=== PATIENT | female | born 1990 | race African-American/Black ===

== ENCOUNTER 2024-12-07 22:35 | Emergency (ER) | payer OTHER ==
[2024-12-07 22:39] VITALS: BP 130/72; PULSE 80; RESP 16; TEMP 97.3; BMI 30.4
[2024-12-07 23:16] LABS: HEMATOCRIT 40.1 % (32.4-45.2); HEMOGLOBIN 13.9 G/dL (10.7-15.3); MCH 33.4 pg (25.7-33.7); MCHC 34.7 g/dl (32.0-36.0); MEAN CELL VOLUME 96.3 fl (80-96); MEAN PLT VOLUME 7.4 fl (7.5-11.1); PLATELET COUNT 308.1 10^3/uL (134-434); RBC 4.16 10^6/uL (3.60-5.2); RDW 12.4 % (11.6-15.6); WHITE BLOOD COUNT 8.9 10^3/uL (4.0-10.8)
[2024-12-07 23:32] LABS: ALBUMIN 4.7 g/dl (3.4-5.0); BILIRUBIN,TOTAL 0.3 mg/dl (0.2-1); CREATININE 0.9 mg/dl (0.6-1.3); POTASSIUM 3.8 mmol/L (3.5-5.1); TOT PROT 7.5 g/dl (6.4-8.2)
[2024-12-07 23:38] LABS: PLATELET ESTIMATE ADEQUATE
== END 2024-12-08 00:19 | disposition home or self-care (01) ==
LOC: FER 22:35
DX: R07.89 Other chest pain (principal); R11.2 Nausea with vomiting, unspecified
CPT/HCPCS: 36415; 80053; 84484; 85025; 93005; 99284-25